=== PATIENT | female | born 1985 | race Caucasian/White ===

== ENCOUNTER 2018-04-18 16:45 | Emergency (ER) | payer MEDICARE, OTHER ==
[2018-04-18 16:57] VITALS: RESP 18
[2018-04-18] MEDS ORDERED: methylPREDNISolone SOD SUCCI 125 MG/2 ML VIAL IV STA (17:23)
[2018-04-18] MEDS ORDERED: LORazepam 2 MG/ML INJ IV STA (17:25)
--- NOTE | 2018-04-18 17:26 | ED ---
General Adult HPI - General Chief complaint: Neuro Symptoms/Deficit Stated complaint: FACIAL DROOP Source: patient Mode of arrival: ambulatory Limitations: no limitations - History of Present Illness Initial comments: Dictation was produced using [employer] dictation software. please excuse any grammatical, word or spelling errors. Chief Complaint: 32-year-old female in no serial past medical history presents with left-sided vision loss, left facial weakness. History of Present Illness: Since that her symptoms began 3 days ago. She drove to [place] to visit her brother who is incarcerated. Underway back approximately 3 days ago she began having sore throat, facial weakness and year pain. 2 days ago patient noted that her left-sided of her face was feeling weak. Yesterday she noted some blurring of her vision. Today she notes complete vision loss. Patient denies any constitutional symptoms. The ROS documented in this emergency department record has been reviewed and confirmed by me. Those systems with pertinent positive or negative responses have been documented in the HPI. All other systems are other negative and/or noncontributory. - Related Data Home Medications Medication Instructions Recorded Confirmed Azithromycin [Zithromax Z-pack] See Taper PO DIRECTED 04/18/18 04/18/18 Cetirizine HCl 10 mg PO DAILY 04/18/18 04/18/18 Diazepam [Valium] 5 mg PO BID 04/18/18 04/18/18 L.acidoph,Paracasei, B.lactis 1 cap PO DAILY 04/18/18 04/18/18 [Probiotic] Multivitamin,Therapeutic [Thera] 1 tab PO DAILY 04/18/18 04/18/18 OXcarbazepine [Trileptal] 150 mg PO TID 04/18/18 04/18/18 Adel-3 Fatty Acids/Fish Oil [Fish 1 cap PO DAILY 04/18/18 04/18/18 Oil 1,000 mg Softgel] Omeprazole 40 mg PO DAILY 04/18/18 04/18/18 QUEtiapine [SEROquel] 200 mg PO HS 04/18/18 04/18/18 Sulfamethox-Tmp 800-160Mg [Bactrim 1 tab PO Q12HR 04/18/18 04/18/18 DS 800-160 mg] Previous Rx's Medication Instructions Recorded Erythromycin Ophth Oint [Romycin 1 applic LEFT EYE QID #1 tube 04/18/18 Ophth Oint] predniSONE 60 mg PO DAILY 7 Days #21 tab 04/18/18 valACYclovir HCL [Valacyclovir] 1,000 mg PO DAILY 7 Days #7 tab 04/18/18 Allergies Allergy/AdvReac Type Severity Reaction Status Date / Time aspirin Allergy Unknown Verified 04/18/18 17:34 ibuprofen [From Motrin] Allergy Unknown Verified 04/18/18 17:34 latex Allergy Unknown Verified 04/18/18 17:34 Penicillins Allergy Unknown Verified 04/18/18 17:34 Review of Systems ROS Statement: Those systems with pertinent positive or pertinent negative responses have been documented in the HPI. ROS Other: All systems not noted in ROS Statement are negative. Past Medical History Past Medical History: No Reported History History of Any Multi-Drug Resistant Organisms: None Reported Past Surgical History: Tubal Ligation Additional Past Surgical History / Comment(s): reval of tubial ligation Past Psychological History: Anxiety, Bipolar, Depression Smoking Status: Former smoker Past Alcohol Use History: None Reported Past Drug Use History: None Reported General Exam - General Exam Comments Initial Comments: PHYSICAL EXAM: General Impression: Alert and oriented x3, not in acute distress, tremulous HEENT: Normocephalic atraumatic, extra-ocular movements intact, pupils equal and reactive to light bilaterally, mucous membranes moist. Cardiovascular: Heart regular rate and rhythm, S1&S2 audible, no murmurs, rubs or gallops Chest: Lungs clear to auscultation bilaterally, no rhonchi, no wheeze, no rales Abdomen: Bowel sounds present, abdomen soft, non-tender, non-distended, no organomegaly Musculoskeletal: Pulses present and equal in all extremities, no peripheral edema Motor: Power 5/5 bilaterally, no focal deficits noted Neurological: CN II-XII grossly intact, no focal motor or sensory deficits noted , completely sided facial weakness upper and lower face. Skin: Intact with no visualized rashes Psych: Normal affect and mood Limitations: no limitations Course Vital Signs 04/18/18 04/18/18 16:47 19:51 Temperature 99.0 F 98.4 F Pulse Rate 86 70 Respiratory 18 18 Rate Blood Pressure 128/85 101/70 O2 Sat by Pulse 99 97 Oximetry Medical Decision Making - Medical Decision Making ED course: 32-year-old female with clinical presentation consistent with left- sided dull palsy. Vital signs upon arrival are within acceptable limits.Laboratory evaluation obtained showing no acute processes. Computed tomography scan was obtained to evaluate the orbit. EKG is unremarkable. Glucose presentation is consistent with Thomas palsy. Discussed patient case with Dr. Garcia who recommends stable for discharge. Recommends erythromycin ointment taping showed an eyepatch. He recommends that patient is stable for evaluation on Friday. Patient given prescription for steroids and antivirals. Patient be discharged. She is told that her symptoms may last for approximately 2 weeks. Patient told to protect her eye antidepression night. Patient given ointment to protect the eye. Patient's vision changes is likely secondary to corneal injury from an ability to light. Nursing testing was performed showing no abnormal uptake of fluorescein. Patient reevaluated states that her vision is improved after application of artificial tears. EKG interpretation: Ventricular rate 80, WV interval 164, care is 86, QTC 452. No WV prolongation, no QTC prolongation, no ST or T-wave changes noted. s. Overall, this EKG is unremarkable - Lab Data Result diagrams: 04/18/18 17:45 04/18/18 17:45 Lab Results 04/18/18 04/18/18 Range/Units 17:45 17:45 WBC 7.4 (3.8-10.6) k/uL RBC 4.57 (3.80-5.40) m/uL Hgb 15.0 (11.4-16.0) gm/dL Hct 42.9 (34.0-46.0) % MCV 93.8 (80.0-100.0) fL MCH 32.7 (25.0-35.0) pg MCHC 34.9 (31.0-37.0) g/dL RDW 11.9 (11.5-15.5) % Plt Count 266 (150-450) k/uL Neutrophils % 63 % Lymphocytes % 25 % Monocytes % 8 % Eosinophils % 2 % Basophils % 0 % Neutrophils # 4.7 (1.3-7.7) k/uL Lymphocytes # 1.8 (1.0-4.8) k/uL Monocytes # 0.6 (0-1.0) k/uL Eosinophils # 0.2 (0-0.7) k/uL Basophils # 0.0 (0-0.2) k/uL Sodium 141 (137-145) mmol/L Potassium 3.7 (3.5-5.1) mmol/L Chloride 111 H (98-107) mmol/L Carbon Dioxide 20 L (22-30) mmol/L Anion Gap 10 mmol/L BUN 8 (7-17) mg/dL Creatinine 0.59 (0.52-1.04) mg/dL Est GFR (CKD-EPI)AfAm >90 (>60 ml/min/1.73 sqM) Est GFR (CKD-EPI)NonAf >90 (>60 ml/min/1.73 sqM) Glucose 99 (74-99) mg/dL Calcium 9.6 (8.4-10.2) mg/dL Disposition Clinical Impression: Thomas palsy Disposition: HOME SELF-CARE Condition: Good Prescriptions: Erythromycin Ophth Oint [Romycin Ophth Oint] 1 applic LEFT EYE QID #1 tube predniSONE 60 mg PO DAILY 7 Days #21 tab valACYclovir HCL [Valacyclovir] 1,000 mg PO DAILY 7 Days #7 tab Is patient prescribed a controlled substance at d/c from ED?: No Referrals: Marti Newsome MD [Primary Care Provider] - 1-2 days Chetan Garcia MD [STAFF PHYSICIAN] - 1-2 days Time of Disposition: 20:09
[2018-04-18 18:01] LABS: Basophils % (A) 0 %; Eosinophils # (A) 0.2 k/uL (0-0.7); Eosinophils % (A) 2 %; HCT 42.9 % (34.0-46.0); Lymphocytes # (A) 1.8 k/uL (1.0-4.8); Lymphocytes % (A) 25 %; MCH 32.7 pg (25.0-35.0); MCHC 34.9 g/dL (31.0-37.0); MCV 93.8 fL (80.0-100.0); Mean Platelet Volume 6.7; Monocytes # (A) 0.6 k/uL (0-1.0); Monocytes % (A) 8 %; Neutrophils # (A) 4.7 k/uL (1.3-7.7); Neutrophils % (A) 63 %; Platelet Count 266 k/uL (150-450); RBC 4.57 m/uL (3.80-5.40); RDW 11.9 % (11.5-15.5); WBC 7.4 k/uL (3.8-10.6)
[2018-04-18 18:19] LABS: Anion Gap 10 mmol/L; Blood Urea Nitrogen 8 mg/dL (7-17); Calcium 9.6 mg/dL (8.4-10.2); Carbon Dioxide 20 mmol/L (22-30); Chloride 111 mmol/L (98-107); Glucose 99 mg/dL (74-99); Potassium 3.7 mmol/L (3.5-5.1); Sodium 141 mmol/L (137-145)
[2018-04-18] MEDS ORDERED: ARTIFICIAL TEARS-HYPROMELLOSE DROPS 15 ML BTL LEFT EYE STA (18:43)
--- NOTE | 2018-04-18 18:51 | CT ---
EXAMINATION TYPE: CT brain wo con DATE OF EXAM: 04/18/2018 COMPARISON: None. HISTORY: Weakness and syncope. CT DLP: 1027.4 mGycm. Automated Exposure Control for Dose Reduction was Utilized. TECHNIQUE: CT scan of the head is performed without contrast. FINDINGS: There is no acute intracranial hemorrhage, mass effect, or midline shift identified. The ventricles and sulci are within normal limits in size. The globes are intact and the visualized sin uses are clear. IMPRESSION: No acute intracranial hemorrhage, mass effect, or midline shift
[2018-04-18 19:52] VITALS: BP 101/70; PULSE 70; TEMP 98.4
== END 2018-04-18 20:42 | disposition home or self-care (01) ==
LOC: EC 16:45
DX: G51.0 Bell's palsy (principal); F41.9 Anxiety disorder, unspecified; F31.9 Bipolar disorder, unspecified; Z87.891 Personal history of nicotine dependence; Z79.899 Other long term (current) drug therapy; Z88.6 Allergy status to analgesic agent; Z91.040 Latex allergy status; Z88.0 Allergy status to penicillin
CPT/HCPCS: 36415; 93005; 80048; 85025; 70450; 99284; 96374; 96375; J2060; J2930

== ENCOUNTER → 2020-08-21 | Outpatient (CLI) | payer MEDICARE ==
--- NOTE | 2020-08-22 09:48 | US ---
EXAMINATION TYPE: US transvaginal DATE OF EXAM: 08/21/2020 COMPARISON: NONE CLINICAL HISTORY: N93.8 Dysfunctional Uterine Bleeding. Patient stated past 4 months has had 3of 4 we eks of vaginal bleeding; takes medication for sleeping and valium. Patient stated had tubal reconstru ction; . TECHNIQUE: TV US: Transvaginal sonographic images were medically necessary to better assess the foll owing anatomy: Date of LMP: 08/19/20 EXAM MEASUREMENTS: Uterus: 8.5 x 5.1 x 4.8 cm Endometrial Stripe: 0.9 cm Right Ovary: 2.7 x 2.4 x 1.7 cm Left Ovary: 3.2 x 2.4 x 2.0 cm 1. Uterus: Anteverted, wnl 2. Endometrium: thickness is wnl for Day 3 LMP 3. Right Ovary: multiple, small follicles with largest = 0.9 x 0.8 x 0.6cm 4. Left Ovary: involuting thick walled cyst = 1.8 x 1.5 x 1.8cm Color flow is noted in bilateral ovary. 5. Bilateral Adnexa: wnl 6. Posterior cul-de-sac: wnl IMPRESSION: 1. Multiple bilateral ovarian follicles. Appears to be an involuting cyst on the left ovary follow-up in 6 weeks can be performed
== END | disposition home or self-care (01) ==
LOC: RADUSWWP 15:21
PROVIDERS: ATTEND Obstetrics & Gynecology
DX: N93.8 Other specified abnormal uterine and vaginal bleeding (principal)
CPT/HCPCS: 76830

== ENCOUNTER → 2020-08-22 | Outpatient (CLI) | payer MEDICARE ==
[2020-08-22 18:25] LABS: HCT 36.7 % (37.2-46.3); HGB 12.3 g/dL (12.0-15.0); MCH 31.9 pg (27.0-32.0); MCHC 33.5 g/dL (32.0-37.0); MCV 95.1 fL (80.0-97.0); Mean Platelet Volume 9.9 fL (9.5-12.2); Platelet Count 252 X 10*3/uL (140-440); RBC 3.86 X 10*6/uL (4.10-5.20); RDW 11.9 % (11.5-14.5); WBC 5.44 X 10*3/uL (4.50-10.00)
[2020-08-23 01:17] LABS: Luteinizing Hormone 6.3 mIU/mL; Prolactin 5.5 ng/mL (2.8-29.2)
[2020-08-23 01:18] LABS: Estradiol 59.8 pg/mL; Follicle Stimulating Hormone 8.3 mIU/mL
== END | disposition home or self-care (01) ==
LOC: LABWHC1 12:22
PROVIDERS: ATTEND Obstetrics & Gynecology
DX: N93.8 Other specified abnormal uterine and vaginal bleeding (principal)
CPT/HCPCS: 36415; 82670; 83001; 83002; 84146; 85027

== ENCOUNTER 2023-07-24 15:47 | Emergency (ER) | payer MEDICARE, OTHER ==
[2023-07-24 16:19] VITALS: BP 148/82; PULSE 88; RESP 18; TEMP 97.7
== END 2023-07-24 16:24 | disposition left against medical advice (07) ==
LOC: EC 15:47
DX: Z53.21 Procedure and treatment not carried out due to patient leaving prior to being seen by health care provider (principal)
CPT/HCPCS: 99499

== ENCOUNTER → 2023-07-28 | Outpatient (CLI) | payer MEDICARE ==
--- NOTE | 2023-07-28 10:28 | CT ---
EXAMINATION TYPE: CT brain wo con DATE OF EXAM: 07/28/2023 COMPARISON: 04/18/2018 HISTORY: 37-year-old female F07.81, postconcussion syndrome, head injury TECHNIQUE: Examination was done in axial plane without intravenous contrast. Coronal and sagittal r econstructions performed. CT DLP: 961 mGycm Automated exposure control for dose reduction was used. FINDINGS: There is no evidence of acute intracranial hemorrhage, acute ischemic changes, mass, mass-effect, or extra-axial fluid collection. There is no effacement of cerebral sulci or basal subarachnoid cister ns. There is no hydrocephalus. There is no midline shift. Sims-white matter distinction is preserv ed. Slight rightward nasal septal deviation. Paranasal sinuses and mastoid air cells are well pneumatized . Orbits and globes are intact. IMPRESSION: No acute intracranial abnormality seen.
== END | disposition home or self-care (01) ==
LOC: RADCTMAIN 09:26
PROVIDERS: ATTEND Family Medicine
DX: S09.90XA Unspecified injury of head, initial encounter (principal); F07.81 Postconcussional syndrome; X58.XXXA Exposure to other specified factors, initial encounter
CPT/HCPCS: 70450